=== PATIENT | male | born 1985 | race Caucasian/White ===

== ENCOUNTER 2025-02-13 10:48 | Emergency (ER) | payer OTHER, SELFPAY ==
--- OUTSIDE RECORDS SUMMARY | 2025-02-13 10:50 | XMS_ITS | Clinical Summary ---
Author Organization [employer] [facility] Address [address] [place] [address] Care Team Providers Care Physical Geographer Name Role Phone Pcp, No Primary Care Provider Unavailabl e Allergies Active Allergy Reactions Criticality Noted Date Comments Penicillins *Unknown - Childhood Rxn Unknown 07/11/2005 Patient states that he has tolerated Amoxicillin well several times Medications sennosides-docusat e (SENOKOT S) (8.6-50 mg) tabletIndications: Non-recurrent unilateral inguinal hernia with obstruction without gangrene Take 1 Tablet by mouth 2 times daily if needed for Constipation. 20 Tablet 12/04/2022 7:30 PM CDT 3 Active oxyCODONE (ROXICODONE) 5 mg immediate release tabletIndications: Non-recurrent unilateral inguinal hernia with obstruction without gangrene Take 1-2 Tablets (5-10 mg) by mouth every 4 hours if needed for Pain. 15 Tablet 12/04/2022 7:30 PM CDT 3 Active ibuprofen (ADVIL; MOTRIN) 600 mg tabletIndications: Non-recurrent unilateral inguinal hernia with obstruction without gangrene Take 1 Tablet (600 mg) by mouth every 6 hours if needed for Pain. Maximum of 3200 mg in 24 hours. 20 Tablet 12/04/2022 7:30 PM CDT 3 Active ondansetron (ZOFRAN ODT) 4 mg disintegrating tabletIndications: Non-recurrent unilateral inguinal hernia with obstruction without gangrene Place 1 Tablet (4 mg) on the tongue every 8 hours if needed for Nausea/Vomiti ng. 20 Tablet 12/04/2022 7:30 PM CDT 3 Active benzonatate 200 mg capsuleIndications :Acute cough Take 1 Capsule (200 mg) by mouth 3 times daily if needed for Cough. 15 Capsule 5 Active albuterol HFA 90 mcg/actuation inhalerIndications :Wheezing Inhale 1-2 Puffs by mouth every 4 hours if needed for Shortness Of Breath or Wheezing. 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 WARTS 04/26/2004 Gastroesophageal reflux dise ase with esophagitis without hemorrhage Resolved Problems Problem Noted Date Diagnosed Date Resolved Date FOREIGN BODY, CORNEA-OD 04/12 Immunizations Immunization Administration Dates Next Due Tdap 09/14/2016 Family History Medical History Relation Name Comments Cystic kidney disease Brother Good Health Father Cancer Maternal Grandmother unspeci fied type Good Health Mother Relation Name Status Comments Brother Father Alive Maternal Grandmother Mother Alive Social History Tobacco Use Types Packs/Day Years Used Date Smoking Tobacco: Former Cigarettes Q uit: 07/23/2014 Smokeless Tobacco: Former Chew Tobacco Cessation:Counseling Given: Not Answered Alcohol Use Standard Drinks/Week Comments Yes 0 (1 standard drink = 0.6 oz pur e alcohol) 4-5 drinks per week PHQ-2 Answer Date Recorded PHQ-2 TOTAL SCORE 0 11/23/2022 Financial Resource Strain Answer Date R ecorded Difficulty of Paying Living Expenses Not on file 05/03/2021 Difficulty of Paying Living Expenses Not on file 05/03/2021 Sex and Gender Information Value Date Recorded Sex Assigned at Not on file 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 Gender Identity Not on file Sexual Orientation Not on file 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 Not on file Not on file Not on file Obstetrics History Last Filed Vital Signs Vital Sign Reading Time Taken Comments Blood Pressure 126/86 08/29/2024 4:27 PM CDT Pulse 72 08/29/2024 4:27 PM CDT Temperature 36.3 C (97.4 F) 08/29/2024 4:27 PM CDT Respiratory Rate 20 08/29/2024 4:27 PM CDT Oxygen Saturation 98% 08/29/2024 4:27 PM CDT Inhaled Oxygen Concentration - - Weight 94.8 kg (208 lb 14.4 oz) 12/12/2022 2:05 PM CDT Height 182.9 cm (6') 12/12/2022 2:05 PM CDT Body Mass Index 28.33 12/12/2022 2:05 PM CDT Plan of Treatment Health Maintenance Due Date Last Done Comments HIV for age 15-65 02/11/1999 Hepatitis C screening for age 18-79 02/11/2002 Hepatitis B series for 19+ (1 of 3 - 19+ 3-dose series) 02/11/2003 HPV series for age 9-45 (1 - 3-dose SCDM series) 02/11/2011 Lipids for age 35-44 02/11/2019 Depression screening for age 12+ 11/24/2023 11/23/2022, 12/17/2016 BMI (ht and wt on same day) for age 18+ 12/13/2023 12/12/2022, 11/23/2022, 10/12/2022, Additional history exists COVID-19 vaccine series (2023- season) 2025 Influenza Vaccine (#1) 2025 Tetanus booster 09/14/2026 09/14/2016 RSV vaccine for adults or (1 - 1-dose 75+ series) 02/11/2059 Pneumococcal series for age 6-49 Aged Out No longer eligible based on patient's age to complete this topic Medical Devices Implanted Type Area Sorting Cows Worker Device Identifier Shelf Expiration Date Model / Serial / Lot Mesh Inguinal Rt [id number] 3-D Max Mid Lg - [id number] Implanted:Qty: 1 on 12/03/2022 by Carlos Amaya MD at [facility] Right: Inguinal [employer] 06/09/2027 [id number] / / [id number] Insurance [facility] INDIVIDUAL AND FAMILY PLANS [facility] [place] [address] [place] [address] INDIVIDUAL AND FAMILY PLANS Advance Directives * Full Code (Latest Code Status on File) Date Activated Date Inactivated Comments 12/03/2022 5:58 AM 12/03/2022 3:45 PM Question Answer Comments Code Status Discussion: Reviewed Preferences * Full Code Date Activated Date Inactivated Comments 07/06/2022 3:05 PM 07/06/2022 5:35 PM Question Answer Comments Code Status Discussion: Discussed * Full Code Date Activated Date Inactivated Comments 07/06/2022 9:18 AM 07/06/2022 2:06 PM Question Answer Comments Code Status Discussion: Discussed * Full Code Date Activated Date Inactivated Comments 07/06/2022 9:18 AM 07/06/2022 9:18 AM Question Answer Comments Code Status Discussion: Discussed Care Teams Physical Geographer Relationship Specialty Start Date End Date Pcp, No . PCP - General 11/11/13
[2025-02-13 10:56] VITALS: BP 148/83; PULSE 77; RESP 16; TEMP 36.3; O2SAT 99; BMI 28.5
--- NOTE | 2025-02-13 11:04 | CRLHL7_ITS ---
For Patients: As a result of the Cures Act, medical imaging exams and procedure reports are released immediately into your electronic medical record. You may view this report before your referring provider. If you have questions, please contact your health care provider. INDICATION: Foot injury. COMPARISON: None. TECHNIQUE: Left foot 3 views. FINDINGS: Best seen on the lateral view, there is a linear lucency across the base of the left 5th metatarsal concerning for fracture. No other fractures. Degenerative changes of the IP joints. No dislocation. Normal visualized mid and hindfoot. Small plantar spur. IMPRESSION: 1. Fracture at the base of the left 5th metatarsal Dictated by Mihir Farias MD @ 02/13/2025 11:39:21 AM (Electronically Signed)
--- NOTE | 2025-02-13 11:06 | ED_ITS ---
HPI - General Adult General Chief complaint: Extremity Pain/Injury, Lower Stated complaint: Left foot, possibly broken Time Seen by Provider: 02/13/25 10:56 Source: patient Mode of arrival: ambulatory Limitations: no limitations History of Present Illness HPI narrative: 40-year-old male presents to the emergency department with injury to his left foot last night while out at a bar. Someone stepped on his foot. Has been bearing weight on it but it hurts to do so. Arrives on crutches today. Tried taking 400 mg of ibuprofen about an hour ago with no significant change in his pain. Pain is located on the lateral mid foot, 5th metatarsal area. No prior surgery, trauma or major injury to this foot in the past. No history of DVT or PE, no anticoagulation. No numbness or tingling in the toes. Opposite foot is unaffected. No pain in the ankle, toes or other parts of the foot. No other injuries. No recent illness. Past medical history benign per his report. No long-term medications. Allergy to penicillins. Related Data Home Medications ?Medication ?Instructions ?Recorded ?Confirmed No Known Home Medications 02/13/2509/04 Allergies Allergy/AdvReac Type Severity Reaction Status Date / Time Penicillins Allergy Unknown Verified 02/13/25 10:58 [facility] Social History Smoking Status: Former smoker How often do you have a drink containing alcohol: 2-3 times a week How many standard drinks containing alcohol do you have on a typical day: 1 or 2 How often do you have six or more drinks on one occasion: Never AUDIT-C Alcohol total score: 3 Non-prescribed substance use: denies use service: No Exam Const: Vital Signs, click to edit/add: Vital Signs - 24 hr 02/13/25 10:56 Temperature 97.3 F L Pulse Rate [Pulse Oximeter] 77 Respiratory Rate 16 Blood Pressure [Ri ght Upper Arm] 148/83 H Pulse Oximetry 99 Oxygen Delivery Me thod Room Air Documenting provider has reviewed patient's vital signs: yes Common normals: no apparent distress and alert General appearance: cooperative and well kempt HENMT: Common normals: normocephalic and moist oral mucous membranes Head and scalp: normocephalic Eye: Common normals: conjunctivae normal General eye: normal appearance of both eyes Conjunctiva: conjunctiva(e) normal Neck & C-Spine: General: normal visual inspection Resp: Common normals: normal respiratory effort Effort & inspection: able to speak in complete sentences Cardio: Other: Regular rate and rhythm with normal capillary refill in the toes, palpated thr ough dorsalis pedis Extremity: Other: Right foot appears grossly normal. Some mild osteoarthritic changes noted, no d eformity or tenderness. Left foot with similar mild osteoarthritic changes. Area in question is the base of the 5th metatarsal and the body of the 4th and 5th metatarsals are painful to palpation but there is no deformity, crepitus, effusion or bruising noted. He has pain with flexion, extension inversion and eversion. But they do not seem week. Range of motion is normal in the ankle. The forefoot appears normal with no point bony tenderness on the ball of the foot or any of the toes. Normal sensation, capillary refill and dorsalis pedis pulses. Lower leg appears grossly normal and is nontender to palpation of the tibia and fibula. Neuro: Sensorium/orientation: alert Speech: speech normal Motor exam: strength 5/5 throughout Psych: Common normals: speech normal Appearance: well kempt Speech: normal speech Mood and affect: euthymic mood Insight: insight good Judgement: judgment good Skin: Common normals: no rashes or lesions noted General skin exam: no rashes or lesions noted Course Course ED Course: 40-year-old male with injury to left mid foot, possible fracture. No signs of obvious neurovascular injury. Will administer Tylenol 1000 mg p.o. and obtain x-ray of left foot. Reevaluation(s) Reevaluation #1: Counseled patient on x-ray findings. Mild nondisplaced fracture of the base of the 5th metatarsal. Patient lead placed in postop shoe. He is given prescriptions for Toradol and few hydrocodone for severe pain. Counseled on Tylenol and gentle [id number] sleep aids if needed at night. Orthopedic follow-up in 10-14 days. Crutches if needed but is allowed to bear weight on it. May transition back to his regular shoes when he feels comfortable doing so. Consider a knee scooter if he has long distances to walk. Will take typically 4-6 weeks to heal. Vital Signs Vital signs: Initial Vital Signs Temperature 97.3 F L 02/13/25 10:56 Temperature Source Temporal Artery Scan 02/13/25 10:56 Pulse Rate 77 02/13/25 10:56 Respiratory Rate 16 02/13/25 10:56 Blood Pressure 148/83 H 02/13/25 10:56 Blood Pressure Mean 104 02/13/25 10:56 Blood Pressure Position Sitting 02/13/25 10:56 Pulse Oximetry 99 02/13/25 10:56 Oxygen Delivery Method Room Air 02/13/25 10:56 Vital Signs Temperature 97.3 F L 02/13/25 10:56 Pulse Rate 77 02/13/25 10:56 Respiratory Rate 16 02/13/25 10:56 Blood Pressure 148/83 H 02/13/25 10:56 Pulse Oximetry 99 02/13/25 10:56 Oxygen Delivery Method Room Air 02/13/25 10:56 Temperature 97.3 F L 02/13/25 10:56 Pulse Rate 77 02/13/25 10:56 Respiratory Rate 16 02/13/25 10:56 Blood Pressure 148/83 H 02/13/25 10:56 Pulse Oximetry 99 02/13/25 10:56 Oxygen Delivery Method Room Air 02/13/25 10:56 Medications Administered Medications: Discontinued Medications Generic Name Dose Route Start Last Admin Trade Name [id number] PRN Reason Stop Dose Admin Acetaminophen 1,000 mg 02/13/25 11:04 02/13/25 11:10 Acetaminophen 500 Mg Tablet PO 02/13/25 11:05 1,000 mg ONCE ONE Administration Medical Decision Making Imaging Data Left foot x-ray: Attestation: I have reviewed the pertinent imaging results. My impression: Tiny nondisplaced hairline fracture at the base of the 5th MTP Radiologist's impression: IMPRESSION: 1. Fracture at the base of the left 5th metatarsal Dictated by Mihir Farias MD @ 02/13/2025 11:39:21 AM Discharge Plan Discharge Clinical Impression: Fracture of fifth metatarsal bone of left foot Patient Disposition: Home, Self-Care Condition: Stable Instructions: Foot Fracture in Adults (ED) Additional Instructions: As we discussed, there is a tiny hairline fracture at the base of your 5th metatarsal. This is the bone in the middle of your foot on the very outside. This is a very common place for fracture. Thankfully, the bones are lined up very well and the overall prognosis for this is very good. You are allowed to bear weight and walk on it, but it is often painful to do so. For this reason, most people prefer to use crutches or a knee scooter for the next 10-14 days, then gradually weaning on to more weight-bearing. You are allowed to wear shoes, but often your existing shoes are too tight or put pressure on this area. For this reason, we do offer a postop shoe, a type of splint. I would like for you to follow-up with the orthopedic team in 10-14 days just to make sure that things are healing properly and that no other interventions are needed. For pain, I recommend Tylenol 1000 mg every 6 hours. I will provide her prescription for Toradol which is an anti-inflammatory pain medication. You may take 1 tablet up to every 6 hours. This is in the same family as Aleve and ibuprofen, so I do not recommend that you use additional Aleve or ibuprofen while you are taking the Toradol. Tylenol is a different family and can be overlapped with the Toradol. Many people have difficulty sleeping at night, as bone pain tends to be worse overnight. I do recommended gentle sleep aid like Benadryl 25-50 mg at bedtime and or melatonin 10 mg as needed to aid in sleep. I have also provided you with a small supply of hydrocodone tablets, you may use these if the pain is severe but it is mainly intended for nighttime. This is a narcotic and you should not drive on the medication. Try to wean off of it as soon as possible. Try to use the Tylenol and Toradol as first-line agents for pain relief. Activity Level: Light activity Discharge Diet: Regular Prescriptions: No Action No Known Home Medications Stand Alone Forms: [employer] Info Instructions
[2025-02-13] MEDS: ACETAMINOPHEN 500 MG TABLET 1000 MG PO (11:10)
[2025-02-13 12:52] VITALS: BP 134/101; PULSE 69; RESP 18; TEMP 36.7
== END 2025-02-13 12:15 | disposition home or self-care (01) ==
LOC: ED 12:16
PROVIDERS: Emergency Provider Family Medicine
DX: S92.355A Nondisplaced fracture of fifth metatarsal bone, left foot, initial encounter for closed fracture (principal); W50.0XXA Accidental hit or strike by another person, initial encounter; Y92.59 Other trade areas as the place of occurrence of the external cause
CPT/HCPCS: 73630; 99283; A9270